=== PATIENT | female | born 1945 | race Hispanic/Latino ===

== ENCOUNTER 2018-01-14 13:29 | Inpatient (IN) | payer MEDICARE, BC ==
[2018-01-14 14:16] VITALS: BMI 29.0
--- NOTE | 2018-01-14 14:31 | ED PDOC ---
Arrival/HPI - General Chief Complaint: Trauma Time Seen by Provider: 01/14/18 13:46 Historian: Patient - History of Present Illness Narrative History of Present Illness (Text): 01/14/18 14:15 72 year old female, with past medical history of RSD, DM, HTN, Pacemaker, TIA, and DVT, presents to the ED complaining of right hip discomfort since prior to arrival. Patient states she bent over to help her dog when her cane slipped lead ing her to fall on her right hip. Patient denies any head injury or any loss of consciousness. Patient informs pain to right medial upper thigh associated with difficulty ambulating on the right leg secondary to pain, prompting her to present to the ED for medical evaluation. Patient denies any other associated somatic complaints. Patient denies any fevers, chills, headache, dizziness, chest pain, shortness of breath, dyspnea on exertion, cough, abdominal pain, nausea, vomiting, diarrhea, back pain, neck pain, or any other complaints. Time/Duration: Prior to Arrival Symptom Onset: Gradual Symptom Course: Unchanged Quality: Aching Activities at Onset: Light Context: Home Past Medical History - Provider Review Nursing Documentation Reviewed: Yes - Infectious Disease Hx of Infectious Diseases: None - Tetanus Immunization Tetanus Immunization: Unknown - Cardiac Hx Cardiac Disorders: Yes Hx Hypertension: Yes Hx Pacemaker: Yes Other/Comment: cardiac stent - Pulmonary Hx Respiratory Disorders: No - Neurological Hx Neurological Disorder: Yes Hx Transient Ischemic Attacks (TIA): Yes - HEENT Hx HEENT Disorder: No - Renal Hx Renal Disorder: No - Endocrine/Metabolic Hx Endocrine Disorders: Yes Hx Diabetes Mellitus Type 1: Yes Other/Comment: Neuropathy - Hematological/Oncological Hx Blood Disorders: Yes Other/Comment: DVT - Integumentary Hx Dermatological Disorder: No - Musculoskeletal/Rheumatological Hx Musculoskeletal Disorders: Yes Other/Comment: bulging disc - Gastrointestinal Hx Gastrointestinal Disorders: No - Genitourinary/Gynecological Hx Genitourinary Disorders: No - Psychiatric Hx Psychophysiologic Disorder: Yes Hx Anxiety: Yes Hx Depression: Yes Hx Panic Disorder: Yes Hx Substance Use: No - Surgical History Other/Comment: ankle - Anesthesia Hx Anesthesia Reactions: No - Suicidal Assessment Feels Threatened In Home Enviroment: No Family/Social History - Physician Review Nursing Documentation Reviewed: Yes Family/Social History: Blood Clots Smoking Status: Never Smoked Hx Alcohol Use: No Hx Substance Use: No Allergies/Home Meds Allergies/Adverse Reactions: Allergies clindamycin Allergy (Verified 01/14/18 14:23) RASH Home Medications: Home Meds Medication Instructions Recorded Confirmed Pen Needle, Diabetic [Novofine 32] 1 each SQ DAILY 01/14/18 01/14/18 Pregabalin [Lyrica] 50 mg PO BID 01/14/18 01/14/18 RX: LORazepam [Ativan] 1 mg PO PRN PRN 01/14/18 01/14/18 RX: Oxycodone HCl/Acetaminophen 1 tab PO TID 01/14/18 01/14/18 [Endocet 10-325 mg Tablet] RX: Temazepam [Restoril] 30 mg PO HS 01/14/18 01/14/18 RX: Warfarin [Coumadin] 1 mg PO DAILY 01/14/18 01/14/18 Review of Systems - Physician Review All systems were reviewed & negative as marked: Yes - Review of Systems Constitutional: absent: Fevers Respiratory: absent: SOB, Cough Cardiovascular: absent: Chest Pain Gastrointestinal: absent: Abdominal Pain, Diarrhea, Nausea, Vomiting Genitourinary Female: absent: Dysuria, Urine Output Changes Musculoskeletal: Other (right hip and right upper thigh pain.). absent: Back Pain, Neck Pain Skin: absent: Rash Neurological: absent: Headache, Dizziness Physical Exam Vital Signs Reviewed: Yes Vital Signs Temp Pulse Resp BP Pulse Ox 01/14/18 13:29 98 F 83 18 184/92 H 93 L Temperature: Afebrile Blood Pressure: Hypertensive Pulse: Regular Respiratory Rate: Normal Appearance: Positive for: Well-Appearing, Non-Toxic, Comfortable Pain Distress: None Mental Status: Positive for: Alert and Oriented X 3 - Systems Exam Head: Present: Atraumatic, Normocephalic Pupils: Present: PERRL Extroacular Muscles: Present: EOMI Conjunctiva: Present: Normal Mouth: Present: Moist Mucous Membranes Neck: Present: Normal Range of Motion Respiratory/Chest: Present: Clear to Auscultation, Good Air Exchange. No: Respiratory Distress, Accessory Muscle Use Cardiovascular: Present: Regular Rate and Rhythm, Normal S1, S2. No: Murmurs Abdomen: No: Tenderness, Distention, Peritoneal Signs Back: Present: Normal Inspection Upper Extremity: Present: Normal Inspection. No: Cyanosis, Edema Lower Extremity: Present: Tenderness (Right upper medial thigh tenderness. No hip tenderness. No ankle or knee tenderness. Able to flex and extend knee. Cannot extend right hip secondary to pain.), Neurovascularly Intact. No: Edema Neurological: Present: GCS=15, CN II-XII Intact, Speech Normal Skin: Present: Warm, Dry, Normal Color. No: Rashes Psychiatric: Present: Alert, Oriented x 3, Normal Insight, Normal Concentration Medical Decision Making ED Course and Treatment: 01/14/18 14:20 Impression: 72 year old female presents to the Emergency department complaining of right hip and right thigh pain s/p fall. Plan: -- X-ray of right hip -- X-ray of right femur -- Reassess and disposition Prior Visits: Notes and results from previous visits were reviewed. Progress Notes: Patient given 1 tab percocet for pain. 01/14/18 16:30 X-ray of hip/pelvis reviewed by radiologist, shows: There is a transverse displaced angulated fracture of the right femoral neck. The pelvis is intact X-ray of right femur reviewed by radiologist, shows: Subcapital fracture to proximal right femur. Otherwise unremarkable study. 01/14/18 16:[address] Cantor, who is aware and agrees with Emergency department management, accepts patient's admission under his service. Requests Dr. Dikc on consult for ortho. 01/14/18 16:[address] Dick, who is aware and agrees with Emergency department management plan, accepts consult. Will evaluate patient in the ED. 01/14/18 17:00 Dr. Dick evaluated patient at bedside. 01/14/18 17:15 EKG: Ordered, reviewed, and independently interpreted the EKG, shows ventricularly paced rhythm @ 83 bpm, no concordant ST changes. No ectopy. 4mg morphine ivp given for continued pain. - EKG Interpretation Interpreted by ED Physician: Yes Type: 12 lead EKG - Scribe Statement The provider has reviewed the documentation as recorded by the Scribmike Espitia. All medical record entries made by the Scribe were at my direction and personally dictated by me. I have reviewed the chart and agree that the record accurately reflects my personal performance of the history, physical exam, medical decision making, and the department course for this patient. I have also personally directed, reviewed, and agree with the discharge instructions and disposition. Disposition/Present on Arrival - Present on Arrival Any Indicators Present on Arrival: Yes History of DVT/PE: Yes History of Uncontrolled Diabetes: Yes Urinary Catheter: No History of Decub. Ulcer: No History Surgical Site Infection Following: None - Disposition Have Diagnosis and Disposition been Completed?: Yes Diagnosis: Fracture of femoral neck, right Disposition: HOSPITALIZED Disposition Time: 17:22 Condition: STABLE
[2018-01-14] MEDS ORDERED: Oxycodone/Acetaminophen 5/325 mg Tab PO STA (14:35)
--- NOTE | 2018-01-14 16:44 | RAD ---
Date of service: 01/14/2018 PROCEDURE: Pelvis and right hip HISTORY: fall COMPARISON: TECHNIQUE: Three views FINDINGS: There is a transverse displaced angulated fracture of the right femoral neck. The pelvis is intact IMPRESSION: There is a transverse displaced angulated fracture of the right femoral neck. The pelvis is intact
[2018-01-14 17:11] LABS: BASO # 0.01 K/mm3 (0.0-2.0); BASO % 0.1 % (0.0-3.0); EOS # 0.1 (0.0-0.7); EOS % 0.9 % (1.5-5.0); GRAN # 7.07 (1.4-6.5); HEMOGLOBIN 14.7 g/dL (12.0-16.0); LYMPH # 1.3 (1.2-3.4); LYMPH % 14.7 % (22.0-35.0); MEAN CORPUSCULAR HEMOGLOBIN 30.1 pg (25.0-35.0); MEAN CORPUSCULAR HGB CONC 33.8 g/dl (31.0-37.0); MEAN PLATELET VOLUME 10.2 fl (7.0-11.0); MONO # 0.4 (0.1-0.6); MONO % 4.3 % (1.0-6.0); RBC 4.89 10^6/uL (3.5-6.1); RED CELL DISTRIBUTION WIDTH 13.3 % (11.5-14.5); WHITE BLOOD COUNT 8.8 10^3/uL (4.5-11.0)
[2018-01-14 17:17] LABS: INR 2.51; PARTIAL THROMBOPLASTIN TIME 35.6 Seconds (25.1-36.5); PROTHROMBIN TIME 29.2 SECONDS (9.4-12.5)
[2018-01-14 17:20] LABS: BLOOD UREA NITROGEN 23 mg/dL (7-21); CALCIUM 9.4 mg/dL (8.4-10.5); GFR NON-AFRICAN AMERICAN > 60
--- NOTE | 2018-01-14 17:29 | RAD ---
Date of service: 01/14/2018 PROCEDURE: Right femur HISTORY: fall COMPARISON: January 14, 2018 pelvis and right hip TECHNIQUE: Standard protocol for this study/examination. FINDINGS: Confirmation subcapital fracture proximal right femur. No additional femoral abnormalities identified. IMPRESSION: Subcapital fracture proximal right femur. Otherwise unremarkable study.
--- NOTE | 2018-01-14 17:30 | RAD ---
Date of service: 01/14/2018 PROCEDURE: CHEST RADIOGRAPH, 1 VIEW HISTORY: RT HIP FX COMPARISON: 04/16/2015 FINDINGS: LUNGS: Clear PLEURA: No pneumothorax or pleural fluid seen. CARDIOVASCULAR: No aortic atherosclerotic calcification present. No radiographic findings to suggest acute or significant cardiovascular disease. Position/ configuration of pacemaker OSSEOUS STRUCTURES: No significant abnormalities. VISUALIZED UPPER ABDOMEN: Normal. OTHER FINDINGS: None. IMPRESSION: No active disease.No significant interval change compared to the prior examination(s).
[2018-01-14] MEDS ORDERED: Morphine 4 mg/ml ISec IVP STA (17:49)
--- NOTE | 2018-01-14 19:07 | CARD ---
APPROVED REPORT Date of service: 01/14/2018 EKG Measurement Heart [id number] <Conclusion> Electronic ventricular pacemaker
[2018-01-14] MEDS: Morphine 2 mg/ml ISec IVP PRN ×2 (20:36→23:37)
[2018-01-15] MEDS: Morphine 2 mg/ml ISec IVP PRN ×2 (03:41→19:14)
[2018-01-15 07:15] LABS: BASO # 0.03 K/mm3 (0.0-2.0); BASO % 0.4 % (0.0-3.0); EOS # 0.3 (0.0-0.7); EOS % 4.4 % (1.5-5.0); GRAN # 5.13 (1.4-6.5); GRAN % 73.5 % (50.0-68.0); HEMOGLOBIN 14.5 g/dL (12.0-16.0); LYMPH # 1.1 (1.2-3.4); MEAN CELL VOLUME 89.5 fl (80.0-105.0); MEAN CORPUSCULAR HEMOGLOBIN 29.9 pg (25.0-35.0); MEAN CORPUSCULAR HGB CONC 33.4 g/dl (31.0-37.0); MEAN PLATELET VOLUME 10.1 fl (7.0-11.0); MONO # 0.4 (0.1-0.6); MONO % 5.7 % (1.0-6.0); RBC 4.85 10^6/uL (3.5-6.1); RED CELL DISTRIBUTION WIDTH 13.3 % (11.5-14.5)
[2018-01-15 07:23] LABS: ALB/GLOB RATIO 1.2 (1.1-1.8); ALBUMIN 3.7 g/dL (3.0-4.8); ALT/SGPT 30 U/L (7-56); AST/SGOT 41 U/L (14-36); BLOOD UREA NITROGEN 18 mg/dL (7-21); CALCIUM 8.9 mg/dL (8.4-10.5); GFR NON-AFRICAN AMERICAN > 60
--- NOTE | 2018-01-15 07:26 | CON ---
DATE OF CONSULTATION: 01/14/2018 ORTHOPEDIC CONSULTATION HISTORY OF PRESENT ILLNESS: The patient is 62-year-old female, who slipped and fell at home, sustained a displaced subcapital fracture, right hip, and is going to be admitted to Dr. Alin Cantor's service who planned to do a right hip bipolar replacement when she is medically cleared by afternoon when she is medically cleared. She is on blood thinners. FINAL DIAGNOSES: Displaced subcapital fracture, right hip. Plan is to do a rt hip prosthesis, when medically and cardiac clearance is done. Juarez Dick DO MTDE[facility]
--- NOTE | 2018-01-15 09:03 | CP.PCM.PN ---
Subjective - Date & Time of Evaluation Date of Evaluation: 12/25/17 Time of Evaluation: 07:55 - Subjective Subjective: Clinical Care Coordination Note: pt is a 72 year old female with pmhx of RSD, DM, HTN, Pacemaker, TIA, and DVT who presented in ED with c/o of R hip pain s/p fall. She denies hitting her head. Denies headache, dizziness or loss of consciousness. Today, pt is complaining of R hip pain and nausea. She vomited the liquid diet that she had this morning. Denies abdominal pain, diarrhea or constipation. Objective - Vital Signs/Intake and Output Vital Signs (last 24 hours): Temp Pulse Resp BP Pulse Ox 98 F 90 20 144/90 96 01/15/18 08:39 01/15/18 08:39 01/15/18 08:39 01/14/18 19:28 01/15/18 08:39 - Medications Medications: Current Medications Lidocaine (Lidoderm) 1 ea TD DAILY HERMAN Morphine Sulfate (Morphine) 1 mg IVP Q3H PRN PRN Reason: pain Last Admin: 01/15/18 03:41 Dose: 1 mg - Labs Labs: 01/15/18 07:00 01/15/18 07:00 PT 29.2 SECONDS (9.4-12.5) H 01/14/18 17:00 INR 2.51 01/14/18 17:00 APTT 35.6 Seconds (25.1-36.5) 01/14/18 17:00 - Constitutional Appears: Well, Non-toxic, No Acute Distress - Head Exam Head Exam: ATRAUMATIC, NORMAL INSPECTION, NORMOCEPHALIC - Eye Exam Eye Exam: Normal appearance, PERRL Pupil Exam: NORMAL ACCOMODATION - ENT Exam ENT Exam: Mucous Membranes Moist, Normal Exam - Neck Exam Neck Exam: Full ROM - Respiratory Exam Respiratory Exam: Clear to Ausculation Bilateral, NORMAL BREATHING PATTERN - Cardiovascular Exam Cardiovascular Exam: REGULAR RHYTHM, +S1, +S2 - GI/Abdominal Exam GI & Abdominal Exam: Soft, Normal Bowel Sounds - Rectal Exam Rectal Exam: Deferred - Extremities Exam Additional comments: limited range of motion of R lower ext 2/2 pain - Neurological Exam Neurological Exam: Alert, Awake, Oriented x3 - Psychiatric Exam Psychiatric exam: Normal Affect, Normal Mood - Skin Skin Exam: Dry, Warm Assessment and Plan - Assessment and Plan (Free Text) Assessment: 72 y.o. female who presented in ED s/p Fall with R hip pain. She was found to have a displaced subcapital fx of proximal R femur. Plan: Pain Management Anti-emetic SCD boots Ortho on consult - possible OR in AM if INR is improved (INR today is 1.9, vit K given and will re-check in AM) Will continue to follow.
--- NOTE | 2018-01-15 09:45 | CON ---
DATE: 01/15/2018 ORTHOPEDIC CONSULTATION LOCATION: Room 575, bed 1. HISTORY OF PRESENT ILLNESS: She came in last night when I saw her in emergency room, but the dictation is not back yet and I diagnosed that she has a subcapital fracture of her right hip that is displaced and will require a bipolar hip prosthesis as she is 72 years old and we have to get her cleared for surgery by Dr. Greco and Dr. Cantor too, get her INR down just to 2.5, and hopefully we can do the surgery today, 01/15/2018, or else they could do it in the evening about 5 o'clock if everything works out. I will give her a liquid breakfast this morning and n.p.o. we just have to get the INR down to under 1.8 or so. I will come back this afternoon and see if everything is ok. FINAL DIAGNOSIS: Displaced subcapital fracture right hip, needing bipolar hip prosthesis. Juarez Dick DO MT[facility]
[2018-01-15 10:25] LABS: PH,URINE 7.5 (4.7-8.0); URINE BILIRUBIN NEGATIVE (NEGATIVE); URINE BLOOD MODERATE (NEGATIVE); URINE GLUCOSE (UA) NEGATIVE (NEGATIVE); URINE LEUKOCYTE ESTERASE NEGATIVE Leu/uL (NEGATIVE); URINE PROTEIN TRACE mg/dL (<30 mg/dL)
[2018-01-15 10:26] LABS: URINE COLOR YELLOW (YELLOW)
[2018-01-15 10:27] LABS: URINE APPEARANCE TURBID (CLEAR)
[2018-01-15 10:34] LABS: URINE BACTERIA FEW (NEG); URINE WBC 0 - 2 /hpf (0-6)
[2018-01-15 10:48] LABS: INR 1.91; PROTHROMBIN TIME 22.2 SECONDS (9.4-12.5)
[2018-01-15] MEDS: Phytonadione 10 MG in Sodium Chloride 0.9% 50 ML IV ONE ×2 (15:28→16:00)
[2018-01-15] MEDS: Lidocaine 5% Patch TD SCH (16:00)
--- NOTE | 2018-01-15 17:38 | CON ---
DATE: 01/15/2018 REQUESTING PHYSICIAN: Dr. Cantor. REASON FOR CONSULTATION: Preoperative evaluation. HISTORY: This is a 72-year-old woman, well known to me with a history of coronary artery disease status post prior PCI, conduction system disease status post permanent pacemaker implant, as well as a history of hypertension, diabetes, prior TIA as well as severe anxiety disorder, who was admitted after a fall at home. She has had an unsteady gait for sometime. She was walking with her cane, but lost her balance when bending over and fell on her right hip. She has had a resultant fracture and is scheduled for hip surgery in the next 24 to 48 hours. She denied any loss of consciousness. She has had no recent chest pain. She does have exertional dyspnea, much of which appears to be anxiety related. This was chronic. PAST MEDICAL HISTORY: Her past history is notable for the problems mentioned above. She reportedly had a DVT in the past as well. MEDICATIONS: Her current medications include morphine p.r.n. and Lidoderm. Her medications at home included also Lyrica, Ativan, oxycodone, Restoril, and warfarin. ALLERGIES: SHE HAS HAD A REACTION TO CLINDAMYCIN IN THE PAST. SOCIAL HISTORY: She does not smoke or drink. She is , lives with her . He is undergoing treatment for metastatic pancreatic cancer and is currently hospitalized on the third floor. FAMILY HISTORY: Unremarkable. REVIEW OF SYSTEMS: Ten-point review of systems is notable for problems as mentioned above. PHYSICAL EXAMINATION: GENERAL: She is an extremely anxious-appearing middle-aged woman. VITAL SIGNS: Her blood pressure is 140/90 with a pulse of 90 and respirations 16. She is afebrile. HEENT: No JVD. CHEST: Few scattered rhonchi heard. HEART: PMI displaced laterally with paradoxical splitting of second sound. ABDOMEN: Soft, nontender, normoactive bowel sounds. EXTREMITIES: No edema. SKIN: Warm and dry. PSYCHIATRIC: Normal mood and affect. NEUROLOGIC: Alert and oriented x3. No gross motor or sensory deficit appreciable. The right leg is immobilized. DIAGNOSTIC DATA: Potassium 4.2, BUN and creatinine are 18 and 0.8. White count 7.0, hemoglobin and hematocrit are 14.5 and 43.4 with a platelet count of 220,000. Her last INR was 2.51 from last evening, repeat is pending. Electrocardiogram reveals a ventricular paced rhythm. Chest x-ray reveals normal cardiac silhouette. Pacemaker system is in place. Lung benitez are clear. IMPRESSION: 1. Status post mechanical fall with resultant hip fracture in need of surgical repair. 2. Conduction system disease, status post permanent pacemaker implant, stable at present. 3. Coronary artery disease, status post remote PCI, clinically stable. 4. Rest of problems as noted. RECOMMENDATIONS: Recommendations from a cardiac standpoint, she appears stable to proceed with surgery as planned once her INR has corrected. A dose of vitamin K will be given this morning and repeat level checked today and again in the morning. If her INR is below 1.7, surgical intervention appears reasonable. She appears stable and optimized from cardiac standpoint to proceed as planned. With respect to her pacemaker, electrocautery pad should be kept below the umbilicus to avoid electromechanical interference with her pacemaker sensors. We will be happy to follow and make further recommendations as appropriate. Jesus Greco MD
--- NOTE | 2018-01-15 20:05 | HP ---
DATE OF EXAM: 01/15/2018 HISTORY OF PRESENT ILLNESS: The patient is a 72-year-old woman with multiple medical comorbidities who presented status post mechanical fall. The patient was on her way to [facility] to visit her when she sustained a mechanical fall with resultant fracture to the right femur. Examination in the ED found her to be afebrile and hemodynamically stable, however, in rather significant distress secondary to pain. She was evaluated by Dr. Dick and was advised that she will require orthopedic repair. She was subsequently admitted for pain control, cardiac evaluation and orthopedic repair of a fracture at her right femoral neck. PAST MEDICAL HISTORY: CAD status post PCI with stent placement, hypertension, type 2 diabetes mellitus with diabetic neuropathy, history of TIA, and severe anxiety disorder. PAST SURGICAL HISTORY: Permanent pacemaker implantation. ALLERGIES: CLINDAMYCIN. MEDICATIONS: Restoril 30 mg p.o. at bedtime, Coumadin 5 mg p.o. daily, Lyrica 50 mg p.o. b.i.d., and lisinopril 10 mg p.o. daily. FAMILY HISTORY: Noncontributory. SOCIAL HISTORY: The patient denies any toxic habits. REVIEW OF SYSTEMS: A 12-point review of systems is negative except as per HPI. PHYSICAL EXAMINATION: VITAL SIGNS: Temperature 98.4, pulse 93, blood pressure 152/84, respiratory rate 20, and oxygen saturation 96% on room air. GENERAL: Moderate distress secondary to hip pain. HEENT: PERRL. EOMI. No scleral icterus. No conjunctival pallor. NECK: No JVD. LUNGS: Few scattered wheeze. CARDIOVASCULAR: Regular rate and rhythm. Normal S1 and S2. ABDOMEN: Normoactive bowel sounds. Soft, nontender, and nondistended. EXTREMITIES: No edema. NEUROLOGIC: Awake, alert and oriented x3. No focal motor deficits. LABORATORY DATA: CBC reviewed and unremarkable. CMP reviewed and unremarkable. ASSESSMENT The patient is a 72-year-old woman with multiple medical comorbidities who presented status post mechanical fall with resultant fracture of the right femoral neck. PLAN: 1. Right femoral neck fracture. Input from Dr. Dick greatly appreciated and the plan is to take the patient to the OR for orthopedic repair after correction of her elevated INR. The patient has received a dose of vitamin K and repeat INR is 1.9. Input from Dr. Greco is also greatly appreciated and the patient is to optimize from the cardiac standpoint with no need for further cardiopulmonary evaluation. 2. Hypertension. Resume lisinopril 10 mg p.o. daily. 3. Type 2 diabetes mellitus. We will start low-dose insulin sliding scale for coverage and monitoring fingersticks q.a.c., at bedtime. 4. CAD, status post PCI, as above input from Dr. Greco is noted and appreciated. Continue with care as per Dr. Greco. 5. Remote history of TIA, Coumadin remains on hold in anticipation of OR. We will resume her anticoagulation when cleared from surgical standpoint. 6. Anxiety disorder. Resume Xanax 1 mg p.o. t.i.d. CODE STATUS: Full code. Alin Cantor MD
[2018-01-15] MEDS: Insulin Reg-MEDIUM-Coverage SC SCH (22:39)
[2018-01-16] MEDS: Morphine 2 mg/ml ISec IVP PRN (05:23)
[2018-01-16 07:47] LABS: HEMOGLOBIN 15.4 g/dL (12.0-16.0); MEAN CELL VOLUME 87.2 fl (80.0-105.0); MEAN CORPUSCULAR HEMOGLOBIN 30.3 pg (25.0-35.0); MEAN CORPUSCULAR HGB CONC 34.8 g/dl (31.0-37.0); MEAN PLATELET VOLUME 10.3 fl (7.0-11.0); RBC 5.08 10^6/uL (3.5-6.1); WHITE BLOOD COUNT 8.4 10^3/uL (4.5-11.0)
[2018-01-16 08:09] LABS: BLOOD UREA NITROGEN 15 mg/dL (7-21); GFR NON-AFRICAN AMERICAN > 60
[2018-01-16 08:24] LABS: INR 1.3
[2018-01-16] MEDS: Insulin Reg-MEDIUM-Coverage SC SCH ×3 (08:41→21:36)
[2018-01-16] MEDS: Lidocaine 5% Patch TD SCH (09:52)
--- NOTE | 2018-01-16 12:03 | PN ---
DATE: 01/16/2018 SUBJECTIVE: The patient is in room 575, bed 1. The patient has no specific complaints and there have been no acute events overnight. PHYSICAL EXAMINATION: VITAL SIGNS: Temperature of 97.9, pulse rate of 91, blood pressure 174/93, respiratory rate of 18, O2 saturation of 98 percent on room air. HEENT: PERRLA, EOMI. No icterus is present. NECK: Supple with a full range of motion. LUNGS: Clear bilaterally. HEART: Regular rate and rhythm. ABDOMEN: Benign. EXTREMITIES: The right leg is immobilized and no edema is present. NEUROLOGICAL: There are no focal motor deficits. LABORATORY FINDINGS: WBC of 8.4, hemoglobin and hematocrit of 15.4 and 44.3. INR this morning is . Chemistry with the exception of a random glucose of 258 is within normal limits. The patient suffered a fall and has a fracture of the right femoral neck. The patient will undergo surgery this afternoon at 2 o'clock. Bhanu Cantor MD
[2018-01-16] MEDS ORDERED: HYDROmorphone 0.5 mg/0.5 ml ISec IVP PRN (13:56)
[2018-01-16] MEDS ORDERED: Lactated Ringer's 1,000 ML IV SCH (14:00)
[2018-01-16] MEDS ORDERED: Propofol 10 mg/ml Inj (20 ML) ONE (14:12)
[2018-01-16] MEDS ORDERED: Midazolam 2 MG/2 ML VIAL ONE (14:12)
[2018-01-16] MEDS ORDERED: Rocuronium 10 mg/ml (5 ml) ONE ×2 (14:13→15:13)
[2018-01-16] MEDS ORDERED: Bupivacaine 0.5% 50 ML IJ ONE (14:14)
[2018-01-16] MEDS ORDERED: Vancomycin 1 g Inj ONE ×2 (14:14→16:00)
[2018-01-16] MEDS ORDERED: Glycopyrrolate 0.2 mg/ml (2ml vial) ONE (16:08)
[2018-01-16] MEDS ORDERED: Neostigmine Methylsulfate 3mg/3ml Syringe IV ONE (16:08)
[2018-01-16] MEDS ORDERED: HYDROmorphone 0.5 mg/0.5 ml ISec ONE (17:07)
[2018-01-16] MEDS: Acetaminophen 650mg/20.3ml solution UD PO SCH (21:06)
[2018-01-16] MEDS: HYDROmorphone 0.5 mg/0.5 ml ISec IVP PRN (23:25)
[2018-01-17] MEDS: HYDROmorphone 0.5 mg/0.5 ml ISec IVP PRN ×4 (04:23→21:11)
[2018-01-17] MEDS: Acetaminophen 650mg/20.3ml solution UD PO SCH ×3 (05:52→21:12)
[2018-01-17 07:14] LABS: MEAN CELL VOLUME 90.2 fl (80.0-105.0); MEAN CORPUSCULAR HEMOGLOBIN 29.9 pg (25.0-35.0); MEAN CORPUSCULAR HGB CONC 33.2 g/dl (31.0-37.0); MEAN PLATELET VOLUME 10.6 fl (7.0-11.0); RBC 4.38 10^6/uL (3.5-6.1); RED CELL DISTRIBUTION WIDTH 13.4 % (11.5-14.5); WHITE BLOOD COUNT 8.8 10^3/uL (4.5-11.0)
[2018-01-17 07:27] LABS: HEMOGLOBIN 13.1 g/dL (12.0-16.0)
--- NOTE | 2018-01-17 07:42 | OP ---
PROCEDURE DATE: 01/16/2018 This is a 72-year-old female. PREOPERATIVE DIAGNOSIS: Displaced subcapital fracture, right hip. POSTOPERATIVE DIAGNOSIS: Displaced subcapital fracture, right hip. PROCEDURE: Right hip bipolar prosthesis. SURGEON: Juarez Dick DO TOWER OPERATOR SURGEON: Jordan Alcazar PA-C ANESTHESIA: General endotracheal tube. DESCRIPTION OF PROCEDURE: Summary as follows: The patient was taken to the OR. Right hip was prepped and draped in a sterile fashion in left lateral decubitus position with the right hip up. Anesthesia was general anesthesia endotracheal tube. With the patient prepped and draped, we made a posterolateral incision of the right hip going 2 inches above the greater trochanter and 2 inches distal oblique fashion. Deep knife was used to go through the adipose tissue down to the fascia which was opened in line with the incision to expose the external rotators and the fracture once we opened the capsule and preserved the piriformis muscle and tagged the external rotators and the capsule. At this time, we took out the femoral head and once we opened the capsule, it was measured 40. The size of the femoral head measured 45 mm. We did appropriate reaming and rasping of the femur stem fit reduced proximal profile collar prosthesis 60 mm x 160 mm and a standard neck and trial reduction was stable to 90 degrees flexion and internal rotation of 30, and leg length of adequate. So, we irrigated out the joint once we removed temporary prosthesis including acetabulum and the soft tissue, put in the permanent prosthesis, also that was good stable reduction to internal rotation, abduction and pistoning. We irrigated out the joint, put vancomycin powder in, irrigation of just with normal saline. Closed the capsule and external rotators to the greater trochanter through the bone. Closed the deep fascia with 0 Vicryl interrupted, and the capsule was closed with a FiberWire #2. So, we did interrupted fascial closure. Then, we did a multiple-layer closure of the subcutaneous tissue, adipose tissue with 0 Vicryl and then 2-0 Vicryl subcutaneous tissue and stainless steel estella to the skin. The patient was taken to the recovery room in an abduction pillow in good condition. We will get an x-ray in the recovery room. Juarez Dick DO [facility] # [id number] MTDEric
[2018-01-17 07:50] LABS: CALCIUM 8.1 mg/dL (8.4-10.5)
[2018-01-17 08:10] LABS: INR 1.23; PROTHROMBIN TIME 14.2 SECONDS (9.4-12.5)
[2018-01-17] MEDS: Enoxaparin 30 mg Syringe SC SCH (09:25)
[2018-01-17] MEDS: Insulin Reg-MEDIUM-Coverage SC SCH ×3 (09:25→17:35)
--- NOTE | 2018-01-17 09:25 | RAD ---
Date of service: 01/16/2018 PROCEDURE: Right hip HISTORY: s/p R hip hemiarthroplasty COMPARISON: TECHNIQUE: Single portable view of the right hip FINDINGS: There is a right hip prosthesis in satisfactory alignment. There are no complicating factors IMPRESSION: As above
[2018-01-17] MEDS ORDERED: Sodium Chloride 0.9% 1,000 ML IV SCH (10:15)
[2018-01-17] MEDS ORDERED: Mupirocin 2% Ointment 15 GM TUBE TOP SCH (10:30)
[2018-01-17] MEDS ORDERED: Nystatin 100,000 Units/gm Topical Pow(15 gm) TOP SCH ×2 (12:00→20:00)
[2018-01-17] MEDS ORDERED: Sodium Chloride 0.9% 250 ML IV STA (13:27)
--- NOTE | 2018-01-17 13:46 | PN ---
DATE: 01/17/2018 FIRST DAY POSTOPERATIVE REPORT LOCATION: Room 575, bed 1. SUBJECTIVE: She is one day postop of her right hip bipolar prosthesis for displaced subcapital fracture. Wound is dry. Hemoglobin stable. She has no complaints of pain. PLAN: To get her up and out of bed today, ambulate with a walker, weightbearing to tolerance. We will follow her at the [facility] and I could see her there for supervisor vacuum metalizing therapy for two to three weeks and she is doing well. Juarez Dick DO MTDD
--- NOTE | 2018-01-17 13:55 | PN ---
DATE: 01/17/2018 SUBJECTIVE: The patient underwent successful reduction surgery yesterday. She has no complaints. There have been no acute events overnight. She has no shortness of breath and says that she uses Spiriva maybe once a week. This is why it was not ordered. PHYSICAL EXAMINATION: VITAL SIGNS: Temperature of 98.8, pulse rate of 98, blood pressure of 107/68, O2 sat of 95. HEENT: Negative. NECK: Supple with a full range of motion. LUNGS: Clear bilaterally. HEART: Regular rate and rhythm. ABDOMEN: Benign. EXTREMITIES: The right upper leg is bandaged. NEUROLOGICAL: The patient is intact. LABORATORY DATA: Hemoglobin 13.1, hematocrit 39.5, white blood cell count of 8.8. SMA-23: BUN of 41, creatinine of 1.8 with a sugar of 348. This will be controlled with four times a day glucose monitoring with regular insulin coverage. ASSESSMENT AND PLAN: Fracture of the right femoral neck. Continue current regimen and the patient will probably be transferred today or tomorrow to a rehab facility. Bhanu Cantor MD
[2018-01-17 16:37] LABS: CALCIUM 7.8 mg/dL (8.4-10.5)
[2018-01-17] MEDS: Mupirocin 2% Ointment 15 GM TUBE TOP SCH (17:36)
[2018-01-18] MEDS: HYDROmorphone 0.5 mg/0.5 ml ISec IVP PRN ×2 (02:07→06:20)
[2018-01-18] MEDS: Acetaminophen 650mg/20.3ml solution UD PO SCH (05:26)
[2018-01-18 08:55] LABS: RBC 3.56 10^6/uL (3.5-6.1); WHITE BLOOD COUNT 7.1 10^3/uL (4.5-11.0)
[2018-01-18 08:56] LABS: HEMOGLOBIN 10.9 g/dL (12.0-16.0); MEAN CELL VOLUME 91.6 fl (80.0-105.0); MEAN CORPUSCULAR HEMOGLOBIN 30.6 pg (25.0-35.0); MEAN CORPUSCULAR HGB CONC 33.4 g/dl (31.0-37.0); MEAN PLATELET VOLUME 11.4 fl (7.0-11.0); RED CELL DISTRIBUTION WIDTH 13.6 % (11.5-14.5)
[2018-01-18 09:08] LABS: CALCIUM 7.4 mg/dL (8.4-10.5)
[2018-01-18] MEDS: Insulin Reg-MEDIUM-Coverage SC SCH (10:51)
[2018-01-18] MEDS: Enoxaparin 30 mg Syringe SC SCH (10:56)
[2018-01-18 10:59] VITALS: PULSE 80
[2018-01-18] MEDS ORDERED: Insulin Lispro (humaLOG) MEDIUM Coverage SC SCH (11:30)
[2018-01-18 12:19] LABS: IRON 36 ug/dL (45-180); URIC ACID 6.2 mg/dL (2.5-6.2)
[2018-01-18 12:28] LABS: % IRON SATURATION 15 % (20-55); TOTAL IRON BINDING CAPACITY 244 ug/dL (265-497)
--- NOTE | 2018-01-18 13:07 | PN ---
DATE: 01/18/2018 SUBJECTIVE: The patient is seen lying in bed on 5R. She is currently comfortable. She underwent hip repair surgery yesterday. MEDICATIONS: Her current medications include Dilaudid, insulin coverage, Lovenox, Xanax and Zestril. PHYSICAL EXAMINATION: GENERAL: She is an anxious-appearing middle-aged woman. VITAL SIGNS: Blood pressure is 102/74 with a pulse of 100, respirations are 14. She is afebrile. HEENT: No JVD. CHEST: Few scattered rhonchi. HEART: Systolic murmur is present left sternal border. ABDOMEN: Soft, nontender with active bowel sounds. EXTREMITIES: Have no edema. DIAGNOSTIC DATA: Potassium 4.4, BUN and creatinine 51 and 2.1, glucose is 267. IMPRESSION: 1. Status post recent fall with hip fracture, status post successful surgical repair. 2. Coronary artery disease, status post remote percutaneous coronary intervention, clinically stable. 3. Conduction system disease, status post permanent pacemaker implant. 4. Acute on chronic renal insufficiency. 5. Hypertension, diabetes. 6. Severe anxiety disorder. 7. Prior deep venous thrombosis. RECOMMENDATIONS: Current cardiac medications should continue for now. Resumption of warfarin with a target INR of 2 to 3 is advised. Once her INR is therapeutic, her Lovenox can be discontinued. She is stable from cardiac standpoint for transfer to rehabilitation center once medically stable and I would be happy to follow along as needed. Jesus Greco MD
[2018-01-18] MEDS: Mupirocin 2% Ointment 15 GM TUBE TOP SCH (13:25)
[2018-01-18 14:28] VITALS: BP 119/82; RESP 20; TEMP 97.7; O2SAT 93
[2018-01-18 16:03] LABS: URINE BILIRUBIN NEGATIVE (NEGATIVE); URINE BLOOD MODERATE (NEGATIVE); URINE GLUCOSE (UA) >=1000 mg/dL (NEGATIVE); URINE LEUKOCYTE ESTERASE NEGATIVE Leu/uL (NEGATIVE); URINE PROTEIN NEGATIVE mg/dL (<30 mg/dL)
[2018-01-18 16:05] LABS: URINE APPEARANCE CLEAR (CLEAR); URINE COLOR YELLOW (YELLOW)
[2018-01-18 16:18] LABS: URINE RBC 15 - 20 /hpf (0-2)
[2018-01-18 17:38] LABS: FOLATE 19.4 ng/mL
--- NOTE | 2018-01-19 00:32 | DS ---
LOCATION: The patient in room 575, bed 1. The patient initially presented to [facility], left in emergency room after having suffered a fall. This was on 01/15/2018. By that time, radiated x-rays were taken and it was demonstrated that the patient had a fracture of the right femoral neck. The patient has a history of diabetes mellitus, hypertension. ALLERGIES ARE TO CLINDAMYCIN AND LUNESTA THAT PRODUCED A RASH. SOCIAL HISTORY: The patient does not use alcohol and never smoked. FAMILY HISTORY: Unremarkable. PHYSICAL EXAMINATION: VITAL SIGNS: Temperature of 98.4, pulse rate of 87, blood pressure 118/64, respiratory rate of 18 with an O2 saturation of 95% on room air. HEENT: Unremarkable. NECK: Supple with a full range of motion. No bruits were present. LUNGS: Clear to auscultation and percussion bilaterally. HEART: Regular rate and rhythm. No murmurs, rubs or gallops. ABDOMEN: Benign. EXTREMITIES: The surgical bandage is present on the right hip. NEUROLOGIC: There are no focal motor deficits. LABORATORY RESULTS WBC of 7.1, hemoglobin and hematocrit of 10.9 and 32.6. Chemistry; BUN of 59, creatinine of 1.7, glucose of 381. The patient will be transferred to [facility] for physical therapy. Four times a day sugars with regular insulin coverage will be initiated in [facility]. DISCHARGE DIAGNOSES: 1. Diabetes. 2. Fracture of right femoral neck. Bhanu Cantor MD
== END 2018-01-18 17:01 | DRG 536 ==
LOC: ED 13:29 → ERH 17:09 → 5RSO 21:08
PROVIDERS: ADMIT Student in an Organized Health Care Education/Training Program; ATTEND Student in an Organized Health Care Education/Training Program
DX: S72.011A Unspecified intracapsular fracture of right femur, initial encounter for closed fracture (principal); C25.9 Malignant neoplasm of pancreas, unspecified; I10 Essential (primary) hypertension; F41.0 Panic disorder [episodic paroxysmal anxiety]; W01.0XXA Fall on same level from slipping, tripping and stumbling without subsequent striking against object, initial encounter; Z86.73 Personal history of transient ischemic attack (TIA), and cerebral infarction without residual deficits; Z95.0 Presence of cardiac pacemaker; I25.10 Atherosclerotic heart disease of native coronary artery without angina pectoris; I45.9 Conduction disorder, unspecified; F41.9 Anxiety disorder, unspecified; Z86.718 Personal history of other venous thrombosis and embolism; E11.40 Type 2 diabetes mellitus with diabetic neuropathy, unspecified; R79.1 Abnormal coagulation profile; N18.9 Chronic kidney disease, unspecified; I12.9 Hypertensive chronic kidney disease with stage 1 through stage 4 chronic kidney disease, or unspecified chronic kidney disease; E11.22 Type 2 diabetes mellitus with diabetic chronic kidney disease; Y92.009 Unspecified place in unspecified non-institutional (private) residence as the place of occurrence of the external cause; Z95.5 Presence of coronary angioplasty implant and graft